=== PATIENT | male | born 1990 | race Caucasian/White ===

== ENCOUNTER 2021-06-17 17:46 | Inpatient (IN) | payer OTHER ==
[2021-06-17 18:14] VITALS: BMI 29.6
[2021-06-17] MEDS ORDERED: SODIUM CHLORIDE 1,000 ML IV STA ×2 (18:42→18:43)
[2021-06-17 21:32] LABS: BASO % 0.9 % (0-2.0); HEMATOCRIT 39.2 % (35.4-49); HEMOGLOBIN 13.5 GM/dL (11.7-16.9); LYMPH % 38.6 % (8-40); MCH 32.2 pg (25.7-33.7); MCHC 34.4 g/dl (32.0-35.9); MEAN CELL VOLUME 93.4 fl (80-96); MEAN PLT VOLUME 7.4 fl (7.5-11.1); MONO % 10.1 % (3.8-10.2); NEUT % 46.4 % (42.8-82.8); PLATELET COUNT 291 10^3/uL (134-434); WHITE BLOOD COUNT 6.6 K/mm3 (4.0-10.0)
[2021-06-17 21:46] LABS: CHLORIDE 108 mmol/L (98-107); SODIUM 139 mmol/L (136-145)
[2021-06-17 21:48] LABS: ANION GAP 6 MMOL/L (8-16); BLOOD UREA NITROGEN 20.4 mg/dL (7-18); CO2 26 mmol/L (21-32)
[2021-06-17 21:49] LABS: ALBUMIN 3.8 g/dl (3.4-5.0); GLUCOSE,RANDOM 107 mg/dL (74-106)
[2021-06-17 21:52] LABS: CREATININE 0.7 mg/dL (0.55-1.3); SGOT/AST 503 U/L (15-37); SGPT/ALT 55 U/L (13-61)
[2021-06-17 21:53] LABS: TOT PROT 6.7 g/dl (6.4-8.2)
[2021-06-17 21:54] LABS: ALK PHOS 47 U/L (45-117)
[2021-06-17 21:57] LABS: BILIRUBIN,TOTAL 0.3 mg/dL (0.2-1)
[2021-06-17 22:56] LABS: CALCIUM 8.4 mg/dL (8.5-10.1)
[2021-06-18] MEDS: SODIUM CHLORIDE 1,000 ML IV SCH ×2 (00:16→13:17)
[2021-06-18 08:52] LABS: HEMATOCRIT 40.9 % (35.4-49); MCHC 34.3 g/dl (32.0-35.9); MEAN CELL VOLUME 93.4 fl (80-96); MEAN PLT VOLUME 7.6 fl (7.5-11.1); PLATELET COUNT 287 10^3/uL (134-434); RBC 4.38 M/mm3 (4.00-5.60); RDW 12.3 % (11.9-15.9); WHITE BLOOD COUNT 4.9 K/mm3 (4.0-10.0)
[2021-06-18 09:25] LABS: ALBUMIN 3.9 g/dl (3.4-5.0)
[2021-06-18 09:26] LABS: BLOOD UREA NITROGEN 12.6 mg/dL (7-18); CALCIUM 8.4 mg/dL (8.5-10.1); MAGNESIUM 2.2 mg/dL (1.8-2.4)
[2021-06-18 09:30] LABS: CREATININE 0.7 mg/dL (0.55-1.3); PHOSPHOROUS 2.7 mg/dL (2.5-4.9)
[2021-06-18 09:31] LABS: BILIRUBIN,TOTAL 0.6 mg/dL (0.2-1); TOT PROT 6.7 g/dl (6.4-8.2)
[2021-06-18] MEDS: ENOXAPARIN NA (PORCINE) 40 MG/0.4 ML DISP.SYRIN SQ SCH (09:57)
[2021-06-18] MEDS: LACTATED RINGERS SOLUTION 1,000 ML/1,000 ML INFUS.BAG IV SCH ×2 (18:04→22:00)
[2021-06-19] MEDS: LACTATED RINGERS SOLUTION 1,000 ML/1,000 ML INFUS.BAG IV SCH ×3 (02:20→10:24)
[2021-06-19 06:09] VITALS: BP 125/85; PULSE 72; TEMP 97.8
[2021-06-19 07:56] LABS: BASO % 0.9 % (0-2.0); EOS % 3.7 % (0-4.5); HEMOGLOBIN 13.8 GM/dL (11.7-16.9); LYMPH % 41.9 % (8-40); MCH 32.2 pg (25.7-33.7); MCHC 34.6 g/dl (32.0-35.9); MEAN PLT VOLUME 7.7 fl (7.5-11.1); MONO % 12.1 % (3.8-10.2); NEUT % 41.4 % (42.8-82.8); PLATELET COUNT 273 10^3/uL (134-434); RDW 11.9 % (11.9-15.9); WHITE BLOOD COUNT 4.8 K/mm3 (4.0-10.0)
[2021-06-19 08:14] LABS: ALBUMIN 3.6 g/dl (3.4-5.0); BLOOD UREA NITROGEN 6.2 mg/dL (7-18)
[2021-06-19 08:16] LABS: PHOSPHOROUS 2.8 mg/dL (2.5-4.9)
[2021-06-19 08:17] LABS: CREATININE 0.7 mg/dL (0.55-1.3)
[2021-06-19 08:19] LABS: BILIRUBIN,TOTAL 0.5 mg/dL (0.2-1); TOT PROT 6.3 g/dl (6.4-8.2)
[2021-06-19] MEDS: ENOXAPARIN NA (PORCINE) 40 MG/0.4 ML DISP.SYRIN SQ SCH (10:19)
== END 2021-06-19 13:49 | disposition home or self-care (01) | DRG 351 ==
LOC: JER 17:46 → JERBED 23:04 → J8W 06-18 05:21
PROVIDERS: ADMIT Hospitalist; ATTEND Internal Medicine
DX: M62.82 Rhabdomyolysis (principal); N17.9 Acute kidney failure, unspecified; R79.89 Other specified abnormal findings of blood chemistry
CPT/HCPCS: 36415; 80053; 82550; 82553; 82962; 83735; 84100; 85025; 85027; 87086; 93005; 93010; 99285-25; C9803; U0003; U0005

== ENCOUNTER 2023-09-11 15:42 | Emergency (ER) | payer OTHER ==
[2023-09-11 16:03] VITALS: BP 139/93; PULSE 100; RESP 18; TEMP 98; BMI 30.4
== END 2023-09-11 17:15 | disposition home or self-care (01) ==
LOC: JERFT 15:42 → JER 15:42 → JERFT 17:15
DX: Z20.3 Contact with and (suspected) exposure to rabies (principal)
CPT/HCPCS: 99282-25